=== PATIENT | female | born 1985 | race Two or more races ===

== ENCOUNTER 2019-02-11 04:12 | Observation (INO) | payer OTHER ==
[2019-02-11] MEDS ORDERED: Morphine 4 MG/ML VIAL IVP ONE ×2 (05:21→07:00)
[2019-02-11 05:33] LABS: BASO # 0.1 K/uL (0.0-0.2); BASO % 0.5 % (0.0-2.0); EOS # 0.1 K/uL (0.0-0.7); HEMOGLOBIN 9.3 g/dL (12.0-16.0); LYMPH # 1.1 K/uL (1.0-4.3); MEAN CELL VOLUME 84.3 fl (81.0-99.0); MEAN CORPUSCULAR HEMOGLOBIN 26.4 pg (27.0-31.0); MEAN CORPUSCULAR HGB CONC 31.3 g/dL (33.0-37.0); MEAN PLATELET VOLUME 7.3 fl (7.2-11.7); MONO % 8.5 % (0.0-10.0); NRBC % 0.2 % (0.0-0.0); PLATELET COUNT 391 K/uL (130-400); RBC 3.52 Mil/uL (3.80-5.20); RED CELL DISTRIBUTION WIDTH 15.3 % (11.5-14.5); WHITE BLOOD COUNT 12.4 K/uL (4.8-10.8)
[2019-02-11] MEDS ORDERED: Morphine 4 MG/ML VIAL ONE ×2 (05:36→07:02)
[2019-02-11 05:49] LABS: INR 1.3; PROTHROMBIN TIME 14.2 Seconds (9.8-13.1)
[2019-02-11 05:51] LABS: PARTIAL THROMBOPLASTIN TIME 31.9 Seconds (25.6-37.1)
[2019-02-11 05:53] LABS: ALB/GLOB RATIO 1.3 (1.0-2.1); ALBUMIN 3.9 g/dL (3.5-5.0); ALT/SGPT 40 U/L (9-52); AST/SGOT 26 U/L (14-36); BLOOD UREA NITROGEN 16 mg/dl (7-17); CALCIUM 8.7 mg/dL (8.4-10.2); GFR NON-AFRICAN AMERICAN > 60
[2019-02-11 06:01] LABS: SQUAMOUS EPITHIAL 2 /hpf (0-5); URINE AMORPHOUS SEDIMENT RARE /ul (<OCC)
[2019-02-11 06:02] LABS: URINE BILIRUBIN NEGATIVE (NEGATIVE); URINE BLOOD SMALL (NEGATIVE); URINE CLARITY SLIGHTY-CLOUDY (Clear); URINE COLOR YELLOW (YELLOW); URINE GLUCOSE (UA) NEG (NEGATIVE); URINE LEUKOCYTE ESTERASE NEG Leu/uL (Negative); URINE PROTEIN NEGATIVE (NEGATIVE); URINE UROBILINOGEN 0.2-1.0 mg/dL (0.2-1.0)
--- NOTE | 2019-02-11 07:01 | ED PDOC ---
HPI: Chest Pain Time Seen by Provider: 02/11/19 04:58 Chief Complaint (Nursing): Chest Pain Chief Complaint (Provider): Chest Pain History Per: Patient History/Exam Limitations: no limitations Onset/Duration Of Symptoms: Days Current Symptoms Are (Timing): Still Present Severity: Moderate Additional Complaint(s): 34 year old female with pmhx of s/p devi valve replacement at [facility] presents to the ED for an evaluation of chest pain. Patient reports she takes oxycodone for pain. She did not take any medication yesterday. The pain worsened tonight and she took oxycodone with relief. Also reports of shortness of breath. Otherwise, she denies fever or cough. PMD: Wayne Nowak Past Medical History Reviewed: Historical Data, Nursing Documentation, Vital Signs Vital Signs: Last Vital Signs Temp 98.9 F 02/11/19 04:32 Pulse 80 02/11/19 04:32 Resp 18 02/11/19 04:32 BP 127/86 02/11/19 04:32 Pulse Ox 99 02/11/19 04:32 Primary Care Provider: FAMILY PROVIDER,NO - Medical History PMH: Atrial Fibrillation - Family History Family History: States: Unknown Family Hx - Social History Current smoker - smoking cessation education provided: No (former smoker ) - Home Medications Home Medications: Ambulatory Orders Medication Instructions Recorded Amiodarone [Cordarone] 200 mg PO DAILY 02/11/19 Apixaban [Eliquis] 5 mg PO BID 02/11/19 Aspirin [Aspirin Chewable] 162 mg PO DAILY 02/11/19 Gabapentin [Neurontin] 100 mg PO TID 02/11/19 Ibuprofen [Motrin Tab] 400 mg PO PRN PRN 02/11/19 oxyCODONE [oxyCODONE Immediate 5 mg PO PRN PRN 02/11/19 Release Tab] - Allergies Allergies/Adverse Reactions: Allergies Allergy/AdvReac Type Severity Reaction Status Date / Time No Known Allergies Allergy Verified 02/11/19 04:31 Review of Systems ROS Statement: Except As Marked, All Systems Reviewed And Found Negative Constitutional: Negative for: Fever, Chills Cardiovascular: Positive for: Chest Pain Respiratory: Positive for: Shortness of Breath (mild ) Physical Exam - Reviewed Nursing Documentation Reviewed: Yes Vital Signs Reviewed: Yes - Physical Exam Appears: Positive for: Uncomfortable Head Exam: Positive for: ATRAUMATIC, NORMAL INSPECTION, NORMOCEPHALIC Skin: Positive for: Normal Color, Warm, Dry. Negative for: Rash Eye Exam: Positive for: Normal appearance, EOMI, PERRL ENT: Positive for: Normal ENT Inspection Neck: Positive for: Normal, Painless ROM, Supple. Negative for: Decreased ROM Cardiovascular/Chest: Positive for: Regular Rate, Rhythm, Murmur (systolic ) Respiratory: Positive for: Normal Breath Sounds. Negative for: Decreased Breath Sounds, Wheezing, Respiratory Distress Gastrointestinal/Abdominal: Positive for: Normal Exam, Soft. Negative for: Tenderness Back: Positive for: Normal Inspection Extremity: Positive for: Normal ROM. Negative for: Tenderness, Pedal Edema, Deformity Neurological/Psych: Positive for: Awake, Alert, Normal Tone, Oriented (x3). Negative for: Motor/Sensory Deficits - Laboratory Results Result Diagrams: 02/11/19 05:25 02/11/19 05:25 Lab Results: PT 14.2 Seconds (9.8-13.1) H 02/11/19 05:25 INR 1.3 02/11/19 05:25 APTT 31.9 Seconds (25.6-37.1) 02/11/19 05:25 Troponin I 0.1200 ng/mL (0.00-0.120) 02/11/19 05:25 Total Bilirubin 0.2 mg/dl (0.2-1.3) 02/11/19 05:25 AST 26 U/L (14-36) 02/11/19 05:25 ALT 40 U/L (9-52) 02/11/19 05:25 Alkaline Phosphatase 61 U/L (38-126) 02/11/19 05:25 Total Protein 6.8 G/DL (6.3-8.2) 02/11/19 05:25 Albumin 3.9 g/dL (3.5-5.0) 02/11/19 05:25 Globulin 3.0 gm/dL (2.2-3.9) 02/11/19 05:25 Albumin/Globulin Ratio 1.3 (1.0-2.1) 02/11/19 05:25 Urine Color Yellow (YELLOW) 02/11/19 05:34 Urine Clarity Slighty-cloudy (Clear) 02/11/19 05:34 Urine pH 6.0 (5.0-8.0) 02/11/19 05:34 Ur Specific [place] 1.033 (1.003-1.030) H 02/11/19 05:34 Urine Protein Negative mg/dL (NEGATIVE) 02/11/19 05:34 Urine Glucose (UA) Neg mg/dL (NEGATIVE) 02/11/19 05:34 Urine Ketones Negative mg/dL (NEGATIVE) 02/11/19 05:34 Urine Blood Small (NEGATIVE) 02/11/19 05:34 Urine Nitrate Negative (NEGATIVE) 02/11/19 05:34 Urine Bilirubin Negative (NEGATIVE) 02/11/19 05:34 Urine Urobilinogen 0.2-1.0 mg/dL (0.2-1.0) 02/11/19 05:34 Ur Leukocyte Esterase Neg Megan/uL (Negative) 02/11/19 05:34 Urine RBC (Auto) 12 /hpf (0-3) H 02/11/19 05:34 Urine Microscopic WBC 2 /hpf (0-5) 02/11/19 05:34 Ur Squamous Epith Cells 2 /hpf (0-5) 02/11/19 05:34 Amorphous Sediment Rare /ul (<OCC) H 02/11/19 05:34 - ECG O2 Sat by Pulse Oximetry: 99 (RA) Pulse Ox Interpretation: Normal Medical Decision Making Medical Decision Making: Time: 511 Impression: 34yo female with chest pain in setting for valve replacement Plan: Angio chest PE protocol CT EKG CMP Troponin Urine ED urine dipstick CBC w/ differential PTT Prothrombin time Morphine 4mg Heplock insertion UA Reevaluation Troponin level is elevated. In providers opinion, this is due to recent cardiac procedure 0700 Patient care endorsed to Dr. Noriega pending CT and reevaluation Scribe Attestation: Documented by Shanique Kenney, acting as a scribe for Yonis Armenta MD Provider Scribe Attestation: All medical record entries made by the Scribe were at my direction and personally dictated by me. I have reviewed the chart and agree that the record accurately reflects my personal performance of the history, physical exam, medical decision making, and the department course for this patient. I have also personally directed, reviewed, and agree with the discharge instructions and disposition. Disposition - Clinical Impression Clinical Impression: Chest pain - Disposition Disposition: Transfer of Care Disposition Time: 07:00 Condition: FAIR Patient Signed Over To: Bubba Noriega
--- NOTE | 2019-02-11 07:42 | ED PDOC ---
- Laboratory Results Result Diagrams: 02/11/19 05:25 02/11/19 05:25 Lab Results: PT 14.2 Seconds (9.8-13.1) H 02/11/19 05:25 INR 1.3 02/11/19 05:25 APTT 31.9 Seconds (25.6-37.1) 02/11/19 05:25 Troponin I 0.1200 ng/mL (0.00-0.120) 02/11/19 05:25 Total Bilirubin 0.2 mg/dl (0.2-1.3) 02/11/19 05:25 AST 26 U/L (14-36) 02/11/19 05:25 ALT 40 U/L (9-52) 02/11/19 05:25 Alkaline Phosphatase 61 U/L (38-126) 02/11/19 05:25 Total Protein 6.8 G/DL (6.3-8.2) 02/11/19 05:25 Albumin 3.9 g/dL (3.5-5.0) 02/11/19 05:25 Globulin 3.0 gm/dL (2.2-3.9) 02/11/19 05:25 Albumin/Globulin Ratio 1.3 (1.0-2.1) 02/11/19 05:25 Urine Color Yellow (YELLOW) 02/11/19 05:34 Urine Clarity Slighty-cloudy (Clear) 02/11/19 05:34 Urine pH 6.0 (5.0-8.0) 02/11/19 05:34 Ur Specific [place] 1.033 (1.003-1.030) H 02/11/19 05:34 Urine Protein Negative mg/dL (NEGATIVE) 02/11/19 05:34 Urine Glucose (UA) Neg mg/dL (NEGATIVE) 02/11/19 05:34 Urine Ketones Negative mg/dL (NEGATIVE) 02/11/19 05:34 Urine Blood Small (NEGATIVE) 02/11/19 05:34 Urine Nitrate Negative (NEGATIVE) 02/11/19 05:34 Urine Bilirubin Negative (NEGATIVE) 02/11/19 05:34 Urine Urobilinogen 0.2-1.0 mg/dL (0.2-1.0) 02/11/19 05:34 Ur Leukocyte Esterase Neg Megan/uL (Negative) 02/11/19 05:34 Urine RBC (Auto) 12 /hpf (0-3) H 02/11/19 05:34 Urine Microscopic WBC 2 /hpf (0-5) 02/11/19 05:34 Ur Squamous Epith Cells 2 /hpf (0-5) 02/11/19 05:34 Amorphous Sediment Rare /ul (<OCC) H 02/11/19 05:34 - ECG O2 Sat by Pulse Oximetry: 99 (RA) Pulse Ox Interpretation: Normal Medical Decision Making Medical Decision Making: Time: 0700 -- Patient endorsed to me by Dr. Armenta, pending CT and reevaluation. CT chest reveals no PE or aortic aneurysm. Will place in obs to trend troponin Scribe Attestation: Documented by Jesu Gil, acting as a scribe Eduar Noriega MD. Provider Scribe Attestation: All medical record entries made by the Scribe were at my direction and personally dictated by me. I have reviewed the chart and agree that the record accurately reflects my personal performance of the history, physical exam, medical decision making, and the department course for this patient. I have also personally directed, reviewed, and agree with the discharge instructions and disposition. Disposition - Clinical Impression Clinical Impression: Chest pain - POA Present On Arrival: None - Disposition Disposition: Hospitalized as Observation Patient Disposition Time: 09:44 Condition: FAIR Forms: [facility] (Setswana)
[2019-02-11] MEDS ORDERED: Sodium Chloride 0.9% 50 ML IV ONE (08:41)
[2019-02-11] MEDS ORDERED: Iodixanol 320 mg/ml 50 ml Sol IV ONE (08:41)
[2019-02-11 09:00] LABS: ANISOCYTOSIS SLIGHT; BANDS 1 % (0-2); EOSINOPHIL 2 % (0-7); LYMPHOCYTE 11 % (20-50); METAMYELOCYTE 1 % (0-0); MONOCYTE 5 % (0-10); MYELOCYTE 2 % (0-0); NEUTROPHIL 78 % (42-75); NUCLEATED RED BLOOD CELL 1 % (0-0); PLATELET ESTIMATE NORMAL (NORMAL); TOTAL CELLS COUNTED 100
[2019-02-11 09:01] LABS: HYPOCHROMIC SLIGHT
[2019-02-11] MEDS ORDERED: Oxycodone/Acetaminophen 5/325 mg Tab PO STA (09:37)
--- NOTE | 2019-02-11 09:37 | CT ---
Date of service: 02/11/2019 PROCEDURE: CT Chest with contrast (Pulmonary Angiogram) HISTORY: Chest pain, rule out PE COMPARISON: None available. TECHNIQUE: Axial computed tomography images were obtained of the chest in the pulmonary arterial phase of enhancement. Coronal and sagittal reformatted images were created and reviewed. Intravenous contrast dose: Radiation dose: Total exam DLP = 342.68 mGy-cm. This CT exam was performed using one or more of the following dose reduction techniques: Automated exposure control, adjustment of the mA and/or kV according to patient size, and/or use of iterative reconstruction technique. FINDINGS: The examination is somewhat limited due to suboptimal opacification PULMONARY ARTERIES: Visualized pulmonary trunk, right and left main, lobar and segmental branches of the pulmonary arteries are well opacified with no evidence of filling defects seen to suggest acute central pulmonary embolus. The distal subsegmental branches are less well delineated due to suboptimal opacification.. Minor AORTA: No acute findings. No thoracic aortic aneurysm. No aortic atherosclerotic calcification or mural plaque present. LUNGS: Small right-sided effusion with mild right basilar atelectasis. There is also mild atelectasis left lung base.. Minor linear atelectasis and or scarring also noted in the left upper lobe including the lingular region as well as right middle lobe. There PLEURAL SPACES: Atelectasis and/or scarring changes also seen in the unremarkable. No effusion or pneumothorax. HEART: Heart appears enlarged. No significant pericardial effusion.. No significant pericardial effusion. LYMPH NODES: No lymphadenopathy. BONES, CHEST WALL: Unremarkable. No fracture or destructive lesion OTHER FINDINGS: Unremarkable. IMPRESSION: No evidence of acute central pulmonary embolus. Small right-sided effusion with bibasilar atelectasis.. Minor linear atelectasis also seen in the left lung base including the lingular region as well as right middle lobe
[2019-02-11] MEDS ORDERED: Oxycodone/Acetaminophen 5/325 mg Tab ONE (09:46)
--- NOTE | 2019-02-11 10:34 | CARD ---
APPROVED REPORT Date of service: 02/11/2019 EKG Measurement Heart [id number] VT [id number] <Conclusion> Normal sinus rhythm Normal Electrocardiogram
[2019-02-11] MEDS ORDERED: Oxycodone/Acetaminophen 5/325 mg Tab PO PRN (10:45)
--- NOTE | 2019-02-11 11:02 | CP.PCM.HP ---
<Martha Pond - Last Filed: 02/11/19 13:05> History of Present Illness - History of Present Illness History of Present Illness: 34-year-old female with PMH of severe mitral regurg presents with chest pain 1 week s/p mitral valve replacement preformed at [facility]. Previously she was taking oxycodone for pain relief but as of yesterday 3pm, the pain did not resolve. Pain is diffuse along chest and upper abdomen, 8/10, sharp and squeezing, and radiates to the back. Last seen by cardiac surgeon Tuesday, two days prior to presentation - she spoke with him yesterday at onset of severe pa in and he recommended motrin. She denies any other PMH, dizziness, diaphoresis, syncope, nausea, vomiting, fever and SOB. PMD: Dr. Canales ([facility]), Cardiac surgeon - Dr Nowak Meds: reviewed, as below PMH: denies OBHx: G0 Allergies: denies Fam Hx: denies Surg Hx: as above, denies any previous Socail: denies etoh and illicit drugs. Former smoker 17 years 7 cig/day. 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 CT chest: no PE or aortic aneurysm. Present on Admission - Present on Admission Any Indicators Present on Admission: No Review of Systems - Review of Systems Review of Systems: all other systems reviewed and negative unless noted in HPI Past Patient History - Past Social History Smoking Status: Never Smoked - CARDIAC Hx Cardiac Disorders: Yes - PSYCHIATRIC Hx Substance Use: No - SURGICAL HISTORY Other/Comment: mitral valve replacement Meds Home Medications: Home Medication List Medication Instructions Recorded Confirmed Type Docusate [Colace] 100 mg PO DAILY #30 cap 02/12/19 Rx Ibuprofen [Motrin Tab] 400 mg PO Q6H PRN #20 tab 02/12/19 Rx Metoprolol Succinate XL [Toprol XL] 25 mg PO DAILY tab 02/12/19 Rx oxyCODONE [oxyCODONE Immediate 5 mg PO Q6H PRN #10 tab 02/12/19 Rx Release Tab] Allergies/Adverse Reactions: Allergies Allergy/AdvReac Type Severity Reaction Status Date / Time No Known Allergies Allergy Verified 02/11/19 04:31 Physical Exam - Constitutional Appears: Non-toxic, No Acute Distress - Head Exam Head Exam: NORMAL INSPECTION - Eye Exam Eye Exam: Normal appearance - ENT Exam ENT Exam: Mucous Membranes Moist - Respiratory Exam Respiratory Exam: Clear to Auscultation Bilateral. absent: Respiratory Distress - Cardiovascular Exam Cardiovascular Exam: REGULAR RHYTHM - GI/Abdominal Exam GI & Abdominal Exam: Soft. absent: Tenderness - Extremities Exam Extremities exam: Positive for: normal inspection. Negative for: pedal edema - Neurological Exam Neurological exam: Alert, Oriented x3 - Psychiatric Exam Psychiatric exam: Normal Affect, Normal Mood - Skin Skin Exam: Normal Color, Warm Results - Vital Signs Recent Vital Signs: Last Vital Signs Temp 97.9 F 02/11/19 10:48 Pulse 78 02/11/19 10:48 Resp 18 02/11/19 10:48 BP 118/81 02/11/19 10:48 Pulse Ox 100 02/11/19 10:33 - Labs Result Diagrams: 02/11/19 05:25 02/11/19 05:25 Labs: Laboratory Results - last 24 hr 02/11/19 02/11/19 02/11/19 05:25 05:25 05:25 WBC 12.4 H RBC 3.52 L Hgb 9.3 L Hct 29.6 L MCV 84.3 MCH 26.4 L MCHC 31.3 L RDW 15.3 H Plt Count 391 MPV 7.3 Neut % (Auto) 81.0 H Lymph % (Auto) 9.0 L [place] % (Auto) 8.5 Eos % (Auto) 1.0 Baso % (Auto) 0.5 Neut # (Auto) 10.0 H Lymph # (Auto) 1.1 [place] # (Auto) 1.0 H Eos # (Auto) 0.1 Baso # (Auto) 0.1 Neutrophils % (Manual) 78 H Band Neutrophils % 1 Lymphocytes % (Manual) 11 L Monocytes % (Manual) 5 Eosinophils % (Manual) 2 Metamyelocytes % 1 H Myelocytes % 2 H Nucleated RBC % 1 H Platelet Estimate Normal Hypochromasia (manual) Slight Anisocytosis (manual) Slight PT 14.2 H INR 1.3 APTT 31.9 Sodium 136 Potassium 4.8 Chloride 101 Carbon Dioxide 26 Anion Gap 14 BUN 16 Creatinine 0.8 Est GFR ( Amer) > 60 Est GFR (Non-Af Amer) > 60 Random Glucose 117 H Calcium 8.7 Total Bilirubin 0.2 AST 26 ALT 40 Alkaline Phosphatase 61 Troponin I 0.1200 Total Protein 6.8 Albumin 3.9 Globulin 3.0 Albumin/Globulin Ratio 1.3 Urine Color Urine Clarity Urine pH Ur Specific [place] Urine Protein Urine Glucose (UA) Urine Ketones Urine Blood Urine Nitrate Urine Bilirubin Urine Urobilinogen Ur Leukocyte Esterase Urine RBC (Auto) Urine Microscopic WBC Ur Squamous Epith Cells Amorphous Sediment 02/11/19 02/11/19 05:34 09:49 WBC RBC Hgb Hct MCV MCH MCHC RDW Plt Count MPV Neut % (Auto) Lymph % (Auto) [place] % (Auto) Eos % (Auto) Baso % (Auto) Neut # (Auto) Lymph # (Auto) [place] # (Auto) Eos # (Auto) Baso # (Auto) Neutrophils % (Manual) Band Neutrophils % Lymphocytes % (Manual) Monocytes % (Manual) Eosinophils % (Manual) Metamyelocytes % Myelocytes % Nucleated RBC % Platelet Estimate Hypochromasia (manual) Anisocytosis (manual) PT INR APTT Sodium Potassium Chloride Carbon Dioxide Anion Gap BUN Creatinine Est GFR ( Amer) Est GFR (Non-Af Amer) Random Glucose Calcium Total Bilirubin AST ALT Alkaline Phosphatase Troponin I 0.1150 Total Protein Albumin Globulin Albumin/Globulin Ratio Urine Color Yellow Urine Clarity Slighty-cloudy Urine pH 6.0 Ur Specific [place] 1.033 H Urine Protein Negative Urine Glucose (UA) Neg Urine Ketones Negative Urine Blood Small Urine Nitrate Negative Urine Bilirubin Negative Urine Urobilinogen 0.2-1.0 Ur Leukocyte Esterase Neg Urine RBC (Auto) 12 H Urine Microscopic WBC 2 Ur Squamous Epith Cells 2 Amorphous Sediment Rare H Assessment & Plan - Assessment and Plan (Free Text) Assessment: 34-year-old female with PMH of severe mitral regurg presents with chest pain 1 week s/p mitral valve replacement. Plan: Chest Pain -Admit for observation -Likesly secondary to post-op pain -Troponin neg x2, f/u third -CT chest: no PE or aortic aneurysm -Pain control: Acetamenophen 975mg and Toradol 30mg Q8H, Percocet 5/325 for breakthrough 8-10 severe pain -Monitor vitals Mitral Valve replacement -1 week s/p -C/w home meds -Pain control as needed DVT Prophylaxis -SCD + home meds Eliquis and ASA <Ninoska Phelps - Last Filed: 02/12/19 19:52> Results - Vital Signs Recent Vital Signs: Last Vital Signs Temp 98.3 F 02/12/19 11:55 Pulse 66 02/12/19 11:55 Resp 18 02/12/19 11:55 BP 103/69 02/12/19 11:55 Pulse Ox 99 02/12/19 11:55 - Labs Result Diagrams: 02/12/19 05:20 02/12/19 05:20 Labs: Laboratory Results - last 24 hr 02/12/19 02/12/19 05:20 05:20 WBC 12.3 H RBC 3.30 L Hgb 8.9 L Hct 27.5 L MCV 83.2 MCH 26.9 L MCHC 32.4 L RDW 15.1 H Plt Count 372 Sodium 136 Potassium 4.3 Chloride 101 Carbon Dioxide 29 Anion Gap 10 BUN 11 Creatinine 0.9 Est GFR ( Amer) > 60 Est GFR (Non-Af Amer) > 60 Random Glucose 107 H Calcium 8.5 Attending/Attestation - Attestation I have personally seen and examined this patient.: Yes I have fully participated in the care of the patient.: Yes I have reviewed all pertinent clinical information: Yes Notes (Text): 02/12/19 19:52 Agree with findings and plan as above
[2019-02-11] MEDS: Metoprolol Succinate 25 mg XL Tab PO SCH (11:33)
--- NOTE | 2019-02-11 16:52 | RAD ---
Date of service: 02/11/2019 HISTORY: Chest pain COMPARISON: No prior. TECHNIQUE: 1 view obtained. FINDINGS: LUNGS: Mild bibasilar atelectasis right greater than left PLEURA: No significant pleural effusion identified, no pneumothorax apparent. CARDIOVASCULAR: No aortic atherosclerotic calcification present. Heart size appears enlarged with apparent mitral valve replacement. No pulmonary vascular congestion. OSSEOUS STRUCTURES: No significant abnormalities. VISUALIZED UPPER ABDOMEN: Normal. OTHER FINDINGS: None. IMPRESSION: Mild bibasilar atelectasis right greater than left. Cardiomegaly with apparent mitral valve replacement
[2019-02-12 04:30] VITALS: TEMP 98.3
[2019-02-12 06:13] LABS: HEMOGLOBIN 8.9 g/dL (12.0-16.0); MEAN CELL VOLUME 83.2 fl (81.0-99.0); MEAN CORPUSCULAR HEMOGLOBIN 26.9 pg (27.0-31.0); MEAN CORPUSCULAR HGB CONC 32.4 g/dL (33.0-37.0); RBC 3.3 Mil/uL (3.80-5.20); RED CELL DISTRIBUTION WIDTH 15.1 % (11.5-14.5); WHITE BLOOD COUNT 12.3 K/uL (4.8-10.8)
[2019-02-12 06:30] LABS: BLOOD UREA NITROGEN 11 mg/dl (7-17); CALCIUM 8.5 mg/dL (8.4-10.2); GFR NON-AFRICAN AMERICAN > 60
[2019-02-12 08:02] VITALS: RESP 18
[2019-02-12] MEDS: Metoprolol Succinate 25 mg XL Tab PO SCH (08:40)
--- NOTE | 2019-02-12 09:59 | CP.PCM.DIS ---
<Martha Pond - Last Filed: 02/12/19 12:22> Provider - Provider Date of Admission: 02/11/19 09:42 Attending physician: Ninoska Phelps DO Time Spent in preparation of Discharge (in minutes): 20 Diagnosis - Discharge Diagnosis (1) Chest pain Status: Acute Hospital Course - Lab Results Lab Results: Most Recent Lab Values WBC 12.3 K/uL (4.8-10.8) H 02/12/19 05:20 RBC 3.30 Mil/uL (3.80-5.20) L 02/12/19 05:20 Hgb 8.9 g/dL (12.0-16.0) L 02/12/19 05:20 Hct 27.5 % (34.0-47.0) L 02/12/19 05:20 MCV 83.2 fl (81.0-99.0) 02/12/19 05:20 MCH 26.9 pg (27.0-31.0) L 02/12/19 05:20 MCHC 32.4 g/dL (33.0-37.0) L 02/12/19 05:20 RDW 15.1 % (11.5-14.5) H 02/12/19 05:20 Plt Count 372 K/uL (130-400) 02/12/19 05:20 MPV 7.3 fl (7.2-11.7) 02/11/19 05:25 Neut % (Auto) 81.0 % (50.0-75.0) H 02/11/19 05:25 Lymph % (Auto) 9.0 % (20.0-40.0) L 02/11/19 05:25 Dawson % (Auto) 8.5 % (0.0-10.0) 02/11/19 05:25 Eos % (Auto) 1.0 % (0.0-4.0) 02/11/19 05:25 Baso % (Auto) 0.5 % (0.0-2.0) 02/11/19 05:25 Neut # (Auto) 10.0 K/uL (1.8-7.0) H 02/11/19 05:25 Lymph # (Auto) 1.1 K/uL (1.0-4.3) 02/11/19 05:25 Dawson # (Auto) 1.0 K/uL (0.0-0.8) H 02/11/19 05:25 Eos # (Auto) 0.1 K/uL (0.0-0.7) 02/11/19 05:25 Baso # (Auto) 0.1 K/uL (0.0-0.2) 02/11/19 05:25 Neutrophils % (Manual) 78 % (42-75) H 02/11/19 05:25 Band Neutrophils % 1 % (0-2) 02/11/19 05:25 Lymphocytes % (Manual) 11 % (20-50) L 02/11/19 05:25 Monocytes % (Manual) 5 % (0-10) 02/11/19 05:25 Eosinophils % (Manual) 2 % (0-7) 02/11/19 05:25 Metamyelocytes % 1 % (0-0) H 02/11/19 05:25 Myelocytes % 2 % (0-0) H 02/11/19 05:25 Nucleated RBC % 1 % (0-0) H 02/11/19 05:25 Platelet Estimate Normal (NORMAL) 02/11/19 05:25 Hypochromasia (manual) Slight 02/11/19 05:25 Anisocytosis (manual) Slight 02/11/19 05:25 PT 14.2 Seconds (9.8-13.1) H 02/11/19 05:25 INR 1.3 02/11/19 05:25 APTT 31.9 Seconds (25.6-37.1) 02/11/19 05:25 Sodium 136 mmol/l (132-148) 02/12/19 05:20 Potassium 4.3 MMOL/L (3.6-5.0) 02/12/19 05:20 Chloride 101 mmol/L (98-107) 02/12/19 05:20 Carbon Dioxide 29 mmol/L (22-30) 02/12/19 05:20 Anion Gap 10 (10-20) 02/12/19 05:20 BUN 11 mg/dl (7-17) 02/12/19 05:20 Creatinine 0.9 mg/dl (0.7-1.2) 02/12/19 05:20 Est GFR ( Amer) > 60 02/12/19 05:20 Est GFR (Non-Af Amer) > 60 02/12/19 05:20 Random Glucose 107 mg/dL (65-105) H 02/12/19 05:20 Calcium 8.5 mg/dL (8.4-10.2) 02/12/19 05:20 Total Bilirubin 0.2 mg/dl (0.2-1.3) 02/11/19 05:25 AST 26 U/L (14-36) 02/11/19 05:25 ALT 40 U/L (9-52) 02/11/19 05:25 Alkaline Phosphatase 61 U/L (38-126) 02/11/19 05:25 Troponin I 0.1130 ng/mL (0.00-0.120) 02/11/19 11:24 Total Protein 6.8 G/DL (6.3-8.2) 02/11/19 05:25 Albumin 3.9 g/dL (3.5-5.0) 02/11/19 05:25 Globulin 3.0 gm/dL (2.2-3.9) 02/11/19 05:25 Albumin/Globulin Ratio 1.3 (1.0-2.1) 02/11/19 05:25 Urine Color Yellow (YELLOW) 02/11/19 05:34 Urine Clarity Slighty-cloudy (Clear) 02/11/19 05:34 Urine pH 6.0 (5.0-8.0) 02/11/19 05:34 Ur Specific Townsend 1.033 (1.003-1.030) H 02/11/19 05:34 Urine Protein Negative mg/dL (NEGATIVE) 02/11/19 05:34 Urine Glucose (UA) Neg mg/dL (NEGATIVE) 02/11/19 05:34 Urine Ketones Negative mg/dL (NEGATIVE) 02/11/19 05:34 Urine Blood Small (NEGATIVE) 02/11/19 05:34 Urine Nitrate Negative (NEGATIVE) 02/11/19 05:34 Urine Bilirubin Negative (NEGATIVE) 02/11/19 05:34 Urine Urobilinogen 0.2-1.0 mg/dL (0.2-1.0) 02/11/19 05:34 Ur Leukocyte Esterase Neg Megan/uL (Negative) 02/11/19 05:34 Urine RBC (Auto) 12 /hpf (0-3) H 02/11/19 05:34 Urine Microscopic WBC 2 /hpf (0-5) 02/11/19 05:34 Ur Squamous Epith Cells 2 /hpf (0-5) 02/11/19 05:34 Amorphous Sediment Rare /ul (<OCC) H 02/11/19 05:34 - Hospital Course Hospital Course: 34-year-old female with PMH of severe mitral regurg presents with chest pain 1 week s/p mitral valve replacement preformed at [facility], admitted for observation. Pain was controlled with Tylenol 975mg and Toradol 30mg IV Q8H with percocet 5/325 for breakthrough pain. EKG NSR, chest CT showed no PE. Medically cleared for discharge to home with percocet, colace and ibuprophen. Spoke with FULLING MACHINE OPERATOR at cardio's office, ([phone]) who is calling in a 2 week steroid course, pt educated to hold off on resuming ibuprophen until after the steroids finish. Will follow up with tow bar driver either this Tuesday or next Tuesday, as per FULLING MACHINE OPERATOR. Discharge Exam - Head Exam Head Exam: ATRAUMATIC, NORMAL INSPECTION, NORMOCEPHALIC - Eye Exam Eye Exam: Normal appearance - ENT Exam ENT Exam: Mucous Membranes Moist - Respiratory Exam Respiratory Exam: Clear to PA & Lateral, NORMAL BREATHING PATTERN - Cardiovascular Exam Cardiovascular Exam: REGULAR RHYTHM - GI/Abdominal Exam GI & Abdominal Exam: Soft. absent: Tenderness - Neurological Exam Neurological exam: Alert, Normal Gait, Oriented x3 - Psychiatric Exam Psychiatric exam: Normal Affect, Normal Mood - Skin Skin Exam: Dry, Normal Color Discharge Plan - Discharge Medications Prescriptions: Docusate [Colace] 100 mg PO DAILY #30 cap Ibuprofen [Motrin Tab] 400 mg PO Q6H PRN #20 tab PRN Reason: Pain, Mild (1-3) oxyCODONE [oxyCODONE Immediate Release Tab] 5 mg PO Q6H PRN #10 tab PRN Reason: Pain, Severe (8-10) - Follow Up Plan Condition: FAIR Disposition: HOME/ ROUTINE Instructions: Chest Pain (DC) Additional Instructions: follow up with pmd in 1 week <Ninoska Phelps - Last Filed: 02/12/19 19:49> Provider - Provider Date of Admission: 02/11/19 09:42 Attending physician: Ninoska Phelps DO Hospital Course - Lab Results Lab Results: Most Recent Lab Values WBC 12.3 K/uL (4.8-10.8) H 02/12/19 05:20 RBC 3.30 Mil/uL (3.80-5.20) L 02/12/19 05:20 Hgb 8.9 g/dL (12.0-16.0) L 02/12/19 05:20 Hct 27.5 % (34.0-47.0) L 02/12/19 05:20 MCV 83.2 fl (81.0-99.0) 02/12/19 05:20 MCH 26.9 pg (27.0-31.0) L 02/12/19 05:20 MCHC 32.4 g/dL (33.0-37.0) L 02/12/19 05:20 RDW 15.1 % (11.5-14.5) H 02/12/19 05:20 Plt Count 372 K/uL (130-400) 02/12/19 05:20 MPV 7.3 fl (7.2-11.7) 02/11/19 05:25 Neut % (Auto) 81.0 % (50.0-75.0) H 02/11/19 05:25 Lymph % (Auto) 9.0 % (20.0-40.0) L 02/11/19 05:25 Dawson % (Auto) 8.5 % (0.0-10.0) 02/11/19 05:25 Eos % (Auto) 1.0 % (0.0-4.0) 02/11/19 05:25 Baso % (Auto) 0.5 % (0.0-2.0) 02/11/19 05:25 Neut # (Auto) 10.0 K/uL (1.8-7.0) H 02/11/19 05:25 Lymph # (Auto) 1.1 K/uL (1.0-4.3) 02/11/19 05:25 Dawson # (Auto) 1.0 K/uL (0.0-0.8) H 02/11/19 05:25 Eos # (Auto) 0.1 K/uL (0.0-0.7) 02/11/19 05:25 Baso # (Auto) 0.1 K/uL (0.0-0.2) 02/11/19 05:25 Neutrophils % (Manual) 78 % (42-75) H 02/11/19 05:25 Band Neutrophils % 1 % (0-2) 02/11/19 05:25 Lymphocytes % (Manual) 11 % (20-50) L 02/11/19 05:25 Monocytes % (Manual) 5 % (0-10) 02/11/19 05:25 Eosinophils % (Manual) 2 % (0-7) 02/11/19 05:25 Metamyelocytes % 1 % (0-0) H 02/11/19 05:25 Myelocytes % 2 % (0-0) H 02/11/19 05:25 Nucleated RBC % 1 % (0-0) H 02/11/19 05:25 Platelet Estimate Normal (NORMAL) 02/11/19 05:25 Hypochromasia (manual) Slight 02/11/19 05:25 Anisocytosis (manual) Slight 02/11/19 05:25 PT 14.2 Seconds (9.8-13.1) H 02/11/19 05:25 INR 1.3 02/11/19 05:25 APTT 31.9 Seconds (25.6-37.1) 02/11/19 05:25 Sodium 136 mmol/l (132-148) 02/12/19 05:20 Potassium 4.3 MMOL/L (3.6-5.0) 02/12/19 05:20 Chloride 101 mmol/L (98-107) 02/12/19 05:20 Carbon Dioxide 29 mmol/L (22-30) 02/12/19 05:20 Anion Gap 10 (10-20) 02/12/19 05:20 BUN 11 mg/dl (7-17) 02/12/19 05:20 Creatinine 0.9 mg/dl (0.7-1.2) 02/12/19 05:20 Est GFR ( Amer) > 60 02/12/19 05:20 Est GFR (Non-Af Amer) > 60 02/12/19 05:20 Random Glucose 107 mg/dL (65-105) H 02/12/19 05:20 Calcium 8.5 mg/dL (8.4-10.2) 02/12/19 05:20 Total Bilirubin 0.2 mg/dl (0.2-1.3) 02/11/19 05:25 AST 26 U/L (14-36) 02/11/19 05:25 ALT 40 U/L (9-52) 02/11/19 05:25 Alkaline Phosphatase 61 U/L (38-126) 02/11/19 05:25 Troponin I 0.1130 ng/mL (0.00-0.120) 02/11/19 11:24 Total Protein 6.8 G/DL (6.3-8.2) 02/11/19 05:25 Albumin 3.9 g/dL (3.5-5.0) 02/11/19 05:25 Globulin 3.0 gm/dL (2.2-3.9) 02/11/19 05:25 Albumin/Globulin Ratio 1.3 (1.0-2.1) 02/11/19 05:25 Urine Color Yellow (YELLOW) 02/11/19 05:34 Urine Clarity Slighty-cloudy (Clear) 02/11/19 05:34 Urine pH 6.0 (5.0-8.0) 02/11/19 05:34 Ur Specific Townsend 1.033 (1.003-1.030) H 02/11/19 05:34 Urine Protein Negative mg/dL (NEGATIVE) 02/11/19 05:34 Urine Glucose (UA) Neg mg/dL (NEGATIVE) 02/11/19 05:34 Urine Ketones Negative mg/dL (NEGATIVE) 02/11/19 05:34 Urine Blood Small (NEGATIVE) 02/11/19 05:34 Urine Nitrate Negative (NEGATIVE) 02/11/19 05:34 Urine Bilirubin Negative (NEGATIVE) 02/11/19 05:34 Urine Urobilinogen 0.2-1.0 mg/dL (0.2-1.0) 02/11/19 05:34 Ur Leukocyte Esterase Neg Megan/uL (Negative) 02/11/19 05:34 Urine RBC (Auto) 12 /hpf (0-3) H 02/11/19 05:34 Urine Microscopic WBC 2 /hpf (0-5) 02/11/19 05:34 Ur Squamous Epith Cells 2 /hpf (0-5) 02/11/19 05:34 Amorphous Sediment Rare /ul (<OCC) H 02/11/19 05:34 Attending/Attestation - Attestation I have personally seen and examined this patient.: Yes I have fully participated in the care of the patient.: Yes I have reviewed all pertinent clinical information, including history, physical exam and plan: Yes Notes (Text): 02/12/19 19:49 Agree with findings and plan as above
[2019-02-12 11:56] VITALS: BP 103/69; PULSE 66; O2SAT 99
== END 2019-02-12 13:10 | disposition home or self-care (01) ==
LOC: H.ER 04:12 → H.ERHOLD 09:42 → H.TEL 10:55
PROVIDERS: ADMIT Student in an Organized Health Care Education/Training Program; ATTEND Student in an Organized Health Care Education/Training Program
DX: R07.9 Chest pain, unspecified (principal); I48.91 Unspecified atrial fibrillation; Z79.01 Long term (current) use of anticoagulants; Z87.891 Personal history of nicotine dependence; Z95.2 Presence of prosthetic heart valve; Z79.82 Long term (current) use of aspirin
CPT/HCPCS: 36415; 71045; 71275; 80048; 80053; 81003; 81025; 84484; 85025; 85027; 85610; 85730; 93005; 96374; 99285; G0378; J1885; J2270; Q9967